=== PATIENT | male | born 1970 | race African-American/Black ===

== ENCOUNTER 2018-01-19 19:31 | Inpatient (IN) | payer BC ==
[2018-01-19] MEDS ORDERED: oxyCODONE (CR) 10 MG TAB [oxyCONTIN] PO (20:30)
[2018-01-19] MEDS: DEXTROSE 5%-0.45% NACL 1,000 ML IV (22:07)
[2018-01-19] MEDS: oxyCODONE 5 MG TAB PO (22:11)
[2018-01-19 23:24] LABS: CREATINE KINASE 67 IU/L (23-200)
[2018-01-19] MEDS ORDERED: NITROGLYCERIN (SL) 0.4 MG TAB SL (23:30)
[2018-01-19] MEDS ORDERED: ALBUTEROL/IPRATROPIUM (NEB) 3 ML AMP HHN (23:30)
[2018-01-19] MEDS ORDERED: NACL 0.9% 3 ML SYG IV (23:30)
[2018-01-19] MEDS ORDERED: ONDANSETRON 4 MG INJ IV (23:30)
[2018-01-19] MEDS ORDERED: ACETAMINOPHEN 325 MG TAB PO (23:30)
[2018-01-19 23:38] LABS: CK INDEX 1.5; CK-MB 1.01 ng/ml (0.0-2.4); TROPONIN-I < 0.012 ng/ml (0.000-0.120)
[2018-01-19] MEDS: ASPIRIN (EC) 81 MG TAB PO (23:47)
[2018-01-20] MEDS: DEXTROSE 5%-0.45% NACL 1,000 ML IV ×2 (05:48→15:53)
[2018-01-20 06:59] LABS: ADD MAN DIFF? NO
[2018-01-20 07:03] LABS: BASOPHILS % 0.1 % (0.0-2.0); EOSINOPHILS % 0.1 % (0.0-7.0); HEMOGLOBIN 13.5 g/dl (14.0-18.0); LYMPHOCYTES # 0.6 10^3/ul (0.8-2.9); LYMPHOCYTES % 7.4 % (15.0-51.0); MEAN CORPUSCULAR HGB CONC 33.8 g/dl (32.0-37.0); MEAN CORPUSCULAR VOLUME 91.7 fl (82.0-101.0); MONOCYTE # 0.8 10^3/ul (0.3-0.9); MONOCYTES % 9.6 % (0.0-11.0); NEUTROPHIL # 6.8 10^3/ul (1.6-7.5); NEUTROPHILS % 82.1 % (39.0-77.0); PLATELET COUNT 195 10^3/UL (140-415); RED BLOOD COUNT 4.36 10^6/ul (4.70-6.10); RED CELL DISTRIBUTION WIDTH 12.6 % (11.5-14.5)
[2018-01-20 07:03] LABS: WHITE BLOOD COUNT 8.3 10^3/ul (4.8-10.8)
[2018-01-20 07:18] LABS: HEMOGLOBIN A1C 5.8 % (0-5.9)
[2018-01-20 07:20] LABS: CREATINE KINASE 55 IU/L (23-200)
[2018-01-20 07:23] LABS: ALANINE AMINOTRANSFERASE 35 IU/L (13-69); ALBUMIN 2.8 g/dl (3.3-4.9); ALBUMIN/GLOBULIN RATIO 1.16; ALKALINE PHOSPHATASE 52 IU/L (42-121); ANION GAP 4 (5-13); ASPARTATE AMINO TRANSFERASE 36 IU/L (15-46); BILIRUBIN,INDIRECT 0.4 mg/dl (0-1.1); BILIRUBIN,TOTAL 0.4 mg/dl (0.2-1.3); BLOOD UREA NITROGEN 12 mg/dl (7-20); CALCIUM 8.1 mg/dl (8.4-10.2); CARBON DIOXIDE 30 mmol/L (21-31); CHLORIDE 101 mmol/L (97-110); CHOL/HDL RATIO 3.1 RATIO; CHOLESTEROL 149 mg/dl (100-200); CREATININE 0.76 mg/dl (0.61-1.24); Estimated GFR > 60 mL/min (>60); GLUCOSE 129 mg/dl (70-220); HDL CHOLESTEROL 47 mg/dl (28-71); LDL CHOLESTEROL,CALCULATED 82 mg/dl; POTASSIUM 3.8 mmol/L (3.5-5.1); SODIUM 135 mmol/L (135-144); TOTAL PROTEIN 5.2 g/dl (6.1-8.1); TRIGLYCERIDES 98 mg/dl (0-149)
[2018-01-20 07:31] LABS: CK INDEX 1.6; CK-MB 0.89 ng/ml (0.0-2.4); TROPONIN-I < 0.012 ng/ml (0.000-0.120)
[2018-01-20] MEDS: ASPIRIN 81 MG TAB PO (08:19)
[2018-01-20] MEDS: ENOXAPARIN 40 MG/0.4 ML SYG SC (08:31)
[2018-01-20] MEDS: oxyCODONE 5 MG TAB PO ×2 (10:51→15:19)
[2018-01-20 11:06] LABS: AADO2 Arterial 30.7 mmHg (7.0-24.0); Allen Test ACCEPTAB; Arterial Base Excess 3.6 mmol/L (-3.0-3); Arterial Blood Gas Oxygen Sat 93.8 mmHG (95.0-98.0); Arterial COHb 0.7 % (0.0-3.0); Arterial Fraction of Oxyhgb 92.8 % (93.0-99.0); Arterial HCO3 28.5 mmol/L (22.0-26.0); Arterial MetHb 0.4 % (0.0-1.5); Arterial Total Hemglobin 14.2 g/dl (12.0-18.0); Arterial pCO2 43.8 mmhg (35-45); MODE ROOM AIR; Site Right Radial
[2018-01-20 11:59] LABS: LIPASE 1438 U/L (23-300)
[2018-01-20] MEDS: FAMOTIDINE 20 MG INJ IV (16:43)
[2018-01-20] MEDS: morphine 4 MG/ML VIAL IV (19:36)
[2018-01-20] MEDS: MAGNESIUM HYDROXIDE 30ML CUP PO (23:50)
[2018-01-21] MEDS: DEXTROSE 5%-0.45% NACL 1,000 ML IV (01:51)
[2018-01-21] MEDS: morphine 4 MG/ML VIAL IV ×4 (02:26→19:30)
[2018-01-21] MEDS: BARIUM SULF 2% 450 ML BTL (BERRY SMOOTHIE) PO (05:27)
[2018-01-21 06:08] LABS: ADD MAN DIFF? NO; HAAIG REFLEX REFLEX FILED
[2018-01-21 06:14] LABS: BASOPHILS % 0.2 % (0.0-2.0); EOSINOPHILS # 0.1 10^3/ul (0.0-0.5); HEMATOCRIT 44.9 % (42.0-52.0); HEMOGLOBIN 14.9 g/dl (14.0-18.0); LYMPHOCYTES # 0.7 10^3/ul (0.8-2.9); LYMPHOCYTES % 6.8 % (15.0-51.0); MEAN CORPUSCULAR HEMOGLOBIN 30.6 pg (29.0-33.0); MEAN CORPUSCULAR HGB CONC 33.2 g/dl (32.0-37.0); MEAN CORPUSCULAR VOLUME 92.2 fl (82.0-101.0); MONOCYTE # 0.9 10^3/ul (0.3-0.9); MONOCYTES % 8.5 % (0.0-11.0); NEUTROPHILS % 82.8 % (39.0-77.0); PLATELET COUNT 222 10^3/UL (140-415); RED BLOOD COUNT 4.87 10^6/ul (4.70-6.10); RED CELL DISTRIBUTION WIDTH 12.7 % (11.5-14.5)
[2018-01-21 06:14] LABS: WHITE BLOOD COUNT 10.9 10^3/ul (4.8-10.8)
[2018-01-21 06:31] LABS: HEMOGLOBIN A1C 5.8 % (0-5.9)
[2018-01-21 06:37] LABS: CHOL/HDL RATIO 3.3 RATIO; HDL CHOLESTEROL 46 mg/dl (28-71); LDL CHOLESTEROL,CALCULATED 88 mg/dl; TRIGLYCERIDES 105 mg/dl (0-149)
[2018-01-21 06:37] LABS: CHOLESTEROL 155 mg/dl (100-200)
[2018-01-21 06:38] LABS: INR 0.86; PROTIME 11.8 Sec (11.9-14.9); PT RATIO 0.9
[2018-01-21 07:53] LABS: ALANINE AMINOTRANSFERASE 43 IU/L (13-69); ALBUMIN 3.2 g/dl (3.3-4.9); ALBUMIN/GLOBULIN RATIO 1.33; ALKALINE PHOSPHATASE 65 IU/L (42-121); ANION GAP 9 (5-13); ASPARTATE AMINO TRANSFERASE 51 IU/L (15-46); BILIRUBIN,INDIRECT 0.4 mg/dl (0-1.1); BILIRUBIN,TOTAL 0.4 mg/dl (0.2-1.3); BLOOD UREA NITROGEN 8 mg/dl (7-20); CALCIUM 8.4 mg/dl (8.4-10.2); CARBON DIOXIDE 29 mmol/L (21-31); CHLORIDE 96 mmol/L (97-110); CREATININE 0.73 mg/dl (0.61-1.24); Estimated GFR > 60 mL/min (>60); GLUCOSE 87 mg/dl (70-220); POTASSIUM 3.6 mmol/L (3.5-5.1); SODIUM 134 mmol/L (135-144); TOTAL PROTEIN 5.6 g/dl (6.1-8.1)
[2018-01-21 08:27] LABS: LIPASE 3944 U/L (23-300)
[2018-01-21] MEDS: ASPIRIN 81 MG TAB PO (08:36)
[2018-01-21] MEDS: FAMOTIDINE 20 MG INJ IV (08:36)
[2018-01-21] MEDS: ENOXAPARIN 40 MG/0.4 ML SYG SC (08:37)
[2018-01-21 08:42] LABS: HEPATITIS B CORE ANTIBODY NEGATIVE (NEGATIVE); HEPATITIS C VIRAL ANTIBODY NEGATIVE (NEGATIVE)
[2018-01-21 09:19] LABS: TROPONIN-I < 0.012 ng/ml (0.000-0.120)
[2018-01-21 09:20] LABS: HEPATITIS B SURFACE ANTIGEN NEGATIVE (NEGATIVE)
[2018-01-21] MEDS: SOD CHLORIDE 0.9% 1,000 ML IV ×3 (10:18→22:54)
[2018-01-22] MEDS: morphine 4 MG/ML VIAL IV ×5 (01:09→20:06)
[2018-01-22] MEDS: SOD CHLORIDE 0.9% 1,000 ML IV ×2 (05:30→11:52)
[2018-01-22 06:30] LABS: ADD MAN DIFF? NO
[2018-01-22 06:40] LABS: BASOPHILS % 0.3 % (0.0-2.0); EOSINOPHILS # 0.2 10^3/ul (0.0-0.5); EOSINOPHILS % 1.9 % (0.0-7.0); HEMATOCRIT 42.9 % (42.0-52.0); HEMOGLOBIN 14.2 g/dl (14.0-18.0); LYMPHOCYTES # 0.8 10^3/ul (0.8-2.9); LYMPHOCYTES % 7.4 % (15.0-51.0); MEAN CORPUSCULAR HGB CONC 33.1 g/dl (32.0-37.0); MEAN CORPUSCULAR VOLUME 93.7 fl (82.0-101.0); MEAN PLATELET VOLUME 8.9 fl (7.4-10.4); MONOCYTE # 0.9 10^3/ul (0.3-0.9); MONOCYTES % 8.9 % (0.0-11.0); NEUTROPHIL # 8.3 10^3/ul (1.6-7.5); NEUTROPHILS % 80.7 % (39.0-77.0); PLATELET COUNT 237 10^3/UL (140-415); RED BLOOD COUNT 4.58 10^6/ul (4.70-6.10); RED CELL DISTRIBUTION WIDTH 12.7 % (11.5-14.5)
[2018-01-22 06:40] LABS: WHITE BLOOD COUNT 10.3 10^3/ul (4.8-10.8)
[2018-01-22 07:02] LABS: PHOSPHORUS 3.3 mg/dl (2.5-4.9)
[2018-01-22 07:13] LABS: ANION GAP 8 (5-13); BLOOD UREA NITROGEN 11 mg/dl (7-20); CALCIUM 8.4 mg/dl (8.4-10.2); CARBON DIOXIDE 29 mmol/L (21-31); CHLORIDE 99 mmol/L (97-110); CREATININE 0.91 mg/dl (0.61-1.24); Estimated GFR > 60 mL/min (>60); GLUCOSE 72 mg/dl (70-220); LIPASE 1926 U/L (23-300); POTASSIUM 4.6 mmol/L (3.5-5.1); SODIUM 136 mmol/L (135-144)
[2018-01-22] MEDS: FAMOTIDINE 20 MG INJ IV (08:23)
[2018-01-22] MEDS: ASPIRIN 81 MG TAB PO (08:23)
[2018-01-22] MEDS: ENOXAPARIN 40 MG/0.4 ML SYG SC (08:29)
[2018-01-22] MEDS: DEXTROSE 5%-0.9% NACL 1,000 ML IV ×2 (13:50→23:30)
[2018-01-23] MEDS: morphine 4 MG/ML VIAL IV ×3 (03:42→12:36)
[2018-01-23 06:15] LABS: ADD MAN DIFF? NO
[2018-01-23 06:31] LABS: BASOPHILS % 0.3 % (0.0-2.0); EOSINOPHILS # 0.2 10^3/ul (0.0-0.5); EOSINOPHILS % 3.2 % (0.0-7.0); HEMATOCRIT 40.7 % (42.0-52.0); HEMOGLOBIN 13.7 g/dl (14.0-18.0); LYMPHOCYTES # 0.6 10^3/ul (0.8-2.9); LYMPHOCYTES % 8.1 % (15.0-51.0); MEAN CORPUSCULAR HEMOGLOBIN 30.6 pg (29.0-33.0); MEAN CORPUSCULAR HGB CONC 33.7 g/dl (32.0-37.0); MEAN CORPUSCULAR VOLUME 91.1 fl (82.0-101.0); MEAN PLATELET VOLUME 8.9 fl (7.4-10.4); MONOCYTE # 0.7 10^3/ul (0.3-0.9); MONOCYTES % 8.7 % (0.0-11.0); NEUTROPHILS % 78.8 % (39.0-77.0); PLATELET COUNT 264 10^3/UL (140-415); RED BLOOD COUNT 4.47 10^6/ul (4.70-6.10); RED CELL DISTRIBUTION WIDTH 12.4 % (11.5-14.5)
[2018-01-23 06:31] LABS: WHITE BLOOD COUNT 7.6 10^3/ul (4.8-10.8)
[2018-01-23 06:57] LABS: ANION GAP 8 (5-13); BLOOD UREA NITROGEN 12 mg/dl (7-20); CALCIUM 8.8 mg/dl (8.4-10.2); CARBON DIOXIDE 27 mmol/L (21-31); CHLORIDE 98 mmol/L (97-110); CREATININE 0.76 mg/dl (0.61-1.24); Estimated GFR > 60 mL/min (>60); GLUCOSE 100 mg/dl (70-220); LIPASE 1578 U/L (23-300); POTASSIUM 4.1 mmol/L (3.5-5.1); SODIUM 133 mmol/L (135-144)
[2018-01-23 07:08] LABS: MAGNESIUM 1.9 mg/dl (1.7-2.5)
[2018-01-23 07:08] LABS: PHOSPHORUS 3.5 mg/dl (2.5-4.9)
[2018-01-23] MEDS: ASPIRIN 81 MG TAB PO (08:33)
[2018-01-23] MEDS: FAMOTIDINE 20 MG INJ IV (08:33)
[2018-01-23] MEDS: ENOXAPARIN 40 MG/0.4 ML SYG SC (08:47)
[2018-01-23] MEDS: DEXTROSE 5%-0.9% NACL 1,000 ML IV ×2 (09:30→17:55)
[2018-01-23] MEDS: morphine 2 MG INJ IV ×2 (17:53→22:10)
[2018-01-24] MEDS: morphine 2 MG INJ IV ×5 (03:14→21:59)
[2018-01-24] MEDS: DEXTROSE 5%-0.9% NACL 1,000 ML IV ×3 (05:30→21:02)
[2018-01-24 05:31] LABS: ADD MAN DIFF? NO
[2018-01-24 05:55] LABS: BASOPHILS % 0.7 % (0.0-2.0); EOSINOPHILS # 0.3 10^3/ul (0.0-0.5); EOSINOPHILS % 4.2 % (0.0-7.0); HEMATOCRIT 43.6 % (42.0-52.0); HEMOGLOBIN 14.6 g/dl (14.0-18.0); LYMPHOCYTES # 0.7 10^3/ul (0.8-2.9); LYMPHOCYTES % 10.9 % (15.0-51.0); MEAN CORPUSCULAR HEMOGLOBIN 31.1 pg (29.0-33.0); MEAN CORPUSCULAR HGB CONC 33.5 g/dl (32.0-37.0); MEAN CORPUSCULAR VOLUME 92.8 fl (82.0-101.0); MEAN PLATELET VOLUME 9.1 fl (7.4-10.4); MONOCYTE # 0.7 10^3/ul (0.3-0.9); NEUTROPHIL # 4.2 10^3/ul (1.6-7.5); NEUTROPHILS % 70.9 % (39.0-77.0); POSITIVE DIFF @See below; RED CELL DISTRIBUTION WIDTH 12.2 % (11.5-14.5)
[2018-01-24 05:55] LABS: WHITE BLOOD COUNT 5.9 10^3/ul (4.8-10.8)
[2018-01-24 06:01] LABS: ANION GAP 10 (5-13); BLOOD UREA NITROGEN 13 mg/dl (7-20); CALCIUM 8.9 mg/dl (8.4-10.2); CARBON DIOXIDE 26 mmol/L (21-31); CHLORIDE 98 mmol/L (97-110); CREATININE 0.83 mg/dl (0.61-1.24); Estimated GFR > 60 mL/min (>60); GLUCOSE 91 mg/dl (70-220); LIPASE 1278 U/L (23-300); POTASSIUM 4.3 mmol/L (3.5-5.1); SODIUM 134 mmol/L (135-144)
[2018-01-24 06:21] LABS: PLATELET COUNT 318 10^3/UL (140-415)
[2018-01-24] MEDS: ASPIRIN 81 MG TAB PO (08:08)
[2018-01-24] MEDS: ENOXAPARIN 40 MG/0.4 ML SYG SC (08:09)
[2018-01-24] MEDS: FAMOTIDINE 20 MG INJ IV (08:09)
[2018-01-24] MEDS: METHYLPREDNISOLONE 40 MG INJ IV (12:59)
[2018-01-24] MEDS: MAGNESIUM HYDROXIDE 30ML CUP PO (23:28)
[2018-01-25] MEDS: DEXTROSE 5%-0.9% NACL 1,000 ML IV ×3 (03:42→16:57)
[2018-01-25] MEDS: morphine 2 MG INJ IV ×5 (05:03→22:08)
[2018-01-25] MEDS: ASPIRIN 81 MG TAB PO (08:54)
[2018-01-25] MEDS: FAMOTIDINE 20 MG INJ IV (08:54)
[2018-01-25] MEDS: ENOXAPARIN 40 MG/0.4 ML SYG SC (08:55)
[2018-01-25 12:42] LABS: ADD MAN DIFF? NO
[2018-01-25 12:45] LABS: WHITE BLOOD COUNT 6.4 10^3/ul (4.8-10.8)
[2018-01-25 12:45] LABS: BASOPHILS % 0.6 % (0.0-2.0); EOSINOPHILS # 0.2 10^3/ul (0.0-0.5); HEMOGLOBIN 14.4 g/dl (14.0-18.0); LYMPHOCYTES % 14.9 % (15.0-51.0); MEAN CORPUSCULAR HEMOGLOBIN 30.6 pg (29.0-33.0); MEAN CORPUSCULAR HGB CONC 32.7 g/dl (32.0-37.0); MEAN CORPUSCULAR VOLUME 93.4 fl (82.0-101.0); MEAN PLATELET VOLUME 8.5 fl (7.4-10.4); MONOCYTE # 0.8 10^3/ul (0.3-0.9); MONOCYTES % 11.9 % (0.0-11.0); NEUTROPHIL # 4.3 10^3/ul (1.6-7.5); NEUTROPHILS % 67.9 % (39.0-77.0); PLATELET COUNT 360 10^3/UL (140-415); RED BLOOD COUNT 4.71 10^6/ul (4.70-6.10); RED CELL DISTRIBUTION WIDTH 12.2 % (11.5-14.5)
[2018-01-25 13:03] LABS: ALANINE AMINOTRANSFERASE 29 IU/L (13-69); ALBUMIN 3.8 g/dl (3.3-4.9); ALBUMIN/GLOBULIN RATIO 1.31; ALKALINE PHOSPHATASE 80 IU/L (42-121); ANION GAP 9 (5-13); ASPARTATE AMINO TRANSFERASE 35 IU/L (15-46); BILIRUBIN,INDIRECT 0.1 mg/dl (0-1.1); BILIRUBIN,TOTAL 0.1 mg/dl (0.2-1.3); BLOOD UREA NITROGEN 14 mg/dl (7-20); CALCIUM 9.3 mg/dl (8.4-10.2); CARBON DIOXIDE 29 mmol/L (21-31); CHLORIDE 103 mmol/L (97-110); CREATININE 0.85 mg/dl (0.61-1.24); Estimated GFR > 60 mL/min (>60); GLUCOSE 105 mg/dl (70-220); MAGNESIUM 2.4 mg/dl (1.7-2.5); PHOSPHORUS 3.5 mg/dl (2.5-4.9); POTASSIUM 3.8 mmol/L (3.5-5.1); SODIUM 141 mmol/L (135-144); TOTAL PROTEIN 6.7 g/dl (6.1-8.1)
[2018-01-25] MEDS: METHYLPREDNISOLONE 40 MG INJ IV (13:20)
[2018-01-26] MEDS: DEXTROSE 5%-0.9% NACL 1,000 ML IV ×2 (00:57→06:22)
[2018-01-26 05:56] LABS: ADD MAN DIFF? NO
[2018-01-26 06:01] LABS: WHITE BLOOD COUNT 5.2 10^3/ul (4.8-10.8)
[2018-01-26 06:01] LABS: BASOPHILS % 0.6 % (0.0-2.0); EOSINOPHILS # 0.1 10^3/ul (0.0-0.5); EOSINOPHILS % 1.7 % (0.0-7.0); HEMOGLOBIN 12.2 g/dl (14.0-18.0); LYMPHOCYTES # 0.8 10^3/ul (0.8-2.9); LYMPHOCYTES % 15.1 % (15.0-51.0); MEAN CORPUSCULAR HEMOGLOBIN 30.5 pg (29.0-33.0); MEAN CORPUSCULAR HGB CONC 32.1 g/dl (32.0-37.0); MEAN PLATELET VOLUME 8.7 fl (7.4-10.4); MONOCYTE # 0.6 10^3/ul (0.3-0.9); MONOCYTES % 11.3 % (0.0-11.0); NEUTROPHIL # 3.6 10^3/ul (1.6-7.5); NEUTROPHILS % 69.9 % (39.0-77.0); PLATELET COUNT 344 10^3/UL (140-415); RED CELL DISTRIBUTION WIDTH 12.1 % (11.5-14.5)
[2018-01-26 06:26] LABS: ANION GAP 9 (5-13); BLOOD UREA NITROGEN 11 mg/dl (7-20); CARBON DIOXIDE 26 mmol/L (21-31); CHLORIDE 106 mmol/L (97-110); CREATININE 0.73 mg/dl (0.61-1.24); Estimated GFR > 60 mL/min (>60); GLUCOSE 111 mg/dl (70-220); MAGNESIUM 1.9 mg/dl (1.7-2.5); PHOSPHORUS 3.4 mg/dl (2.5-4.9); POTASSIUM 3.8 mmol/L (3.5-5.1); SODIUM 141 mmol/L (135-144)
[2018-01-26] MEDS: morphine 2 MG INJ IV (06:48)
[2018-01-26] MEDS: predniSONE 20 MG TAB PO (08:48)
[2018-01-26] MEDS: ASPIRIN 81 MG TAB PO (08:48)
[2018-01-26] MEDS: FAMOTIDINE 20 MG INJ IV (08:48)
[2018-01-26] MEDS: ENOXAPARIN 40 MG/0.4 ML SYG SC (08:49)
[2018-01-26] MEDS: PANTOPRAZOLE (EC) 40 MG TAB PO (13:50)
[2018-01-26] MEDS: OXYCODONE/ACETAMINOPHEN (10/325) TAB PO ×2 (13:54→20:06)
[2018-01-27] MEDS: OXYCODONE/ACETAMINOPHEN (10/325) TAB PO ×2 (02:38→08:42)
[2018-01-27] MEDS: PANTOPRAZOLE (EC) 40 MG TAB PO (05:57)
[2018-01-27 06:03] LABS: ADD MAN DIFF? NO
[2018-01-27 06:21] LABS: BASOPHILS % 0.4 % (0.0-2.0); EOSINOPHILS # 0.1 10^3/ul (0.0-0.5); EOSINOPHILS % 2.8 % (0.0-7.0); HEMATOCRIT 36.3 % (42.0-52.0); HEMOGLOBIN 11.8 g/dl (14.0-18.0); LYMPHOCYTES # 0.9 10^3/ul (0.8-2.9); LYMPHOCYTES % 18.1 % (15.0-51.0); MEAN CORPUSCULAR HEMOGLOBIN 30.2 pg (29.0-33.0); MEAN CORPUSCULAR HGB CONC 32.5 g/dl (32.0-37.0); MEAN CORPUSCULAR VOLUME 92.8 fl (82.0-101.0); MEAN PLATELET VOLUME 8.7 fl (7.4-10.4); MONOCYTE # 0.6 10^3/ul (0.3-0.9); MONOCYTES % 12.5 % (0.0-11.0); NEUTROPHIL # 3.3 10^3/ul (1.6-7.5); PLATELET COUNT 384 10^3/UL (140-415); RED BLOOD COUNT 3.91 10^6/ul (4.70-6.10); RED CELL DISTRIBUTION WIDTH 12.4 % (11.5-14.5)
[2018-01-27 06:55] LABS: ANION GAP 9 (5-13); BLOOD UREA NITROGEN 12 mg/dl (7-20); CALCIUM 8.5 mg/dl (8.4-10.2); CARBON DIOXIDE 26 mmol/L (21-31); CHLORIDE 104 mmol/L (97-110); CREATININE 0.79 mg/dl (0.61-1.24); Estimated GFR > 60 mL/min (>60); GLUCOSE 100 mg/dl (70-220); MAGNESIUM 1.8 mg/dl (1.7-2.5); PHOSPHORUS 3.2 mg/dl (2.5-4.9); POTASSIUM 3.8 mmol/L (3.5-5.1); SODIUM 139 mmol/L (135-144)
[2018-01-27] MEDS: ASPIRIN 81 MG TAB PO (09:33)
[2018-01-27] MEDS: predniSONE 20 MG TAB PO (09:33)
[2018-01-27] MEDS: ENOXAPARIN 40 MG/0.4 ML SYG SC (09:35)
== END 2018-01-27 15:10 | disposition home or self-care (01) | DRG 439 ==
LOC: PP2 01-23 13:05 → TEL 19:31
DX: K85.20 Alcohol induced acute pancreatitis without necrosis or infection (principal); J44.1 Chronic obstructive pulmonary disease with (acute) exacerbation; D86.0 Sarcoidosis of lung; J98.4 Other disorders of lung; Z87.891 Personal history of nicotine dependence
CPT/HCPCS: 36600; 71045; 74176; 80048; 80053; 80061; 82550; 82553; 82803; 83036; 83690; 83735; 84100; 84443; 84484; 85025; 85610; 86704; 86709; 86803; 87081; 87340; 93005

== ENCOUNTER 2018-02-14 09:53 | Inpatient (IN) | payer BC ==
[2018-02-14] MEDS: ALBUTEROL 0.5% (NEB) 2.5 MG/0.5 ML AMP INH (10:50)
[2018-02-14] MEDS: IPRATROPIUM (NEB) 0.5 MG/2.5 ML AMP INH (10:50)
[2018-02-14 11:02] LABS: ADD MAN DIFF? NO
[2018-02-14 11:08] LABS: BASOPHILS % 0.4 % (0.0-2.0); EOSINOPHILS # 0.4 10^3/ul (0.0-0.5); HEMOGLOBIN 12.8 g/dl (14.0-18.0); LYMPHOCYTES % 11.5 % (15.0-51.0); MEAN CORPUSCULAR HEMOGLOBIN 30.6 pg (29.0-33.0); MEAN CORPUSCULAR HGB CONC 32.8 g/dl (32.0-37.0); MEAN CORPUSCULAR VOLUME 93.3 fl (82.0-101.0); MEAN PLATELET VOLUME 8.7 fl (7.4-10.4); MONOCYTE # 0.8 10^3/ul (0.3-0.9); NEUTROPHIL # 6.2 10^3/ul (1.6-7.5); NEUTROPHILS % 73.3 % (39.0-77.0); PLATELET COUNT 310 10^3/UL (140-415); RED BLOOD COUNT 4.18 10^6/ul (4.70-6.10); RED CELL DISTRIBUTION WIDTH 13.2 % (11.5-14.5)
[2018-02-14 11:08] LABS: WHITE BLOOD COUNT 8.5 10^3/ul (4.8-10.8)
[2018-02-14 11:17] LABS: AADO2 Arterial 85.3 mmHg (7.0-24.0); Allen Test ACCEPTAB; Arterial Base Excess -0.7 mmol/L (-3.0-3); Arterial Blood Gas Oxygen Sat 99.3 mmHG (95.0-98.0); Arterial COHb 0.6 % (0.0-3.0); Arterial Fraction of Oxyhgb 98.6 % (93.0-99.0); Arterial HCO3 22.9 mmol/L (22.0-26.0); Arterial MetHb 0.1 % (0.0-1.5); Arterial pCO2 34.5 mmhg (35-45); MODE MASK - SIMPLE; Site Right Radial
[2018-02-14] MEDS: SOD CHLORIDE 0.9% 500 ML IV (11:20)
[2018-02-14] MEDS: METHYLPREDNISOLONE 125 MG INJ IV (11:21)
[2018-02-14 11:28] LABS: ANION GAP 10 (5-13); BLOOD UREA NITROGEN 13 mg/dl (7-20); CALCIUM 9.2 mg/dl (8.4-10.2); CARBON DIOXIDE 29 mmol/L (21-31); CHLORIDE 102 mmol/L (97-110); CREATININE 0.78 mg/dl (0.61-1.24); Estimated GFR > 60 mL/min (>60); GLUCOSE 73 mg/dl (70-220); POTASSIUM 3.7 mmol/L (3.5-5.1); SODIUM 141 mmol/L (135-144)
[2018-02-14] MEDS: CEFAZOLIN 1 GM/50 ML (PMX) 50 ML IVPB (11:30)
[2018-02-14 11:39] LABS: TROPONIN-I < 0.012 ng/ml (0.000-0.120)
[2018-02-14] MEDS: KETOROLAC 15 MG INJ IV (12:12)
[2018-02-14] MEDS: LORAZEPAM 2 MG INJ IV (12:14)
[2018-02-14] MEDS ORDERED: ACETAMINOPHEN 325 MG TAB PO (12:30)
[2018-02-14] MEDS ORDERED: NACL 0.9% 3 ML SYG IV (12:30)
[2018-02-14] MEDS ORDERED: ONDANSETRON 4 MG INJ IV (12:30)
[2018-02-14] MEDS: ALBUTEROL/IPRATROPIUM (NEB) 3 ML AMP HHN ×4 (12:38→22:05)
[2018-02-14] MEDS ORDERED: ALBUTEROL/IPRATROPIUM (NEB) 3 ML AMP HHN (13:00)
[2018-02-14 13:22] LABS: CREATINE KINASE 99 IU/L (23-200)
[2018-02-14] MEDS: DOCUSATE SODIUM 100 MG CAP PO ×2 (13:30→21:01)
[2018-02-14 13:32] LABS: CK-MB 0.48 ng/ml (0.0-2.4)
[2018-02-14] MEDS ORDERED: METHYLPREDNISOLONE 40 MG INJ IV (14:00)
[2018-02-14 19:24] LABS: CREATINE KINASE 73 IU/L (23-200)
[2018-02-14 19:38] LABS: CK INDEX 0.6; CK-MB 0.45 ng/ml (0.0-2.4); TROPONIN-I < 0.012 ng/ml (0.000-0.120)
[2018-02-14] MEDS ORDERED: METHYLPREDNISOLONE 40 MG INJ (20:43)
[2018-02-14] MEDS: CEFEPIME 1GM/50 ML (PMX) 50 ML IVPB (20:59)
[2018-02-14] MEDS: FAMOTIDINE 20 MG TAB PO (21:01)
[2018-02-14] MEDS: METHYLPREDNISOLONE 40 MG INJ IV (21:01)
[2018-02-14] MEDS: HYDROCODONE/APAP (5/325) TAB PO (21:02)
[2018-02-15] MEDS: ZOLPIDEM 5 MG TAB PO ×2 (01:04→20:32)
[2018-02-15] MEDS: ALBUTEROL/IPRATROPIUM (NEB) 3 ML AMP HHN ×6 (01:29→20:42)
[2018-02-15] MEDS: METHYLPREDNISOLONE 40 MG INJ IV ×3 (05:17→21:21)
[2018-02-15 06:28] LABS: ADD MAN DIFF? NO
[2018-02-15 06:39] LABS: BASOPHILS % 0.1 % (0.0-2.0); HEMATOCRIT 33.8 % (42.0-52.0); HEMOGLOBIN 11.2 g/dl (14.0-18.0); LYMPHOCYTES # 0.7 10^3/ul (0.8-2.9); LYMPHOCYTES % 9.3 % (15.0-51.0); MEAN CORPUSCULAR HEMOGLOBIN 30.4 pg (29.0-33.0); MEAN CORPUSCULAR HGB CONC 33.1 g/dl (32.0-37.0); MEAN CORPUSCULAR VOLUME 91.8 fl (82.0-101.0); MEAN PLATELET VOLUME 8.8 fl (7.4-10.4); MONOCYTE # 0.5 10^3/ul (0.3-0.9); MONOCYTES % 6.5 % (0.0-11.0); NEUTROPHIL # 6.5 10^3/ul (1.6-7.5); NEUTROPHILS % 83.2 % (39.0-77.0); PLATELET COUNT 267 10^3/UL (140-415); RED BLOOD COUNT 3.68 10^6/ul (4.70-6.10); RED CELL DISTRIBUTION WIDTH 12.6 % (11.5-14.5)
[2018-02-15 06:39] LABS: WHITE BLOOD COUNT 7.8 10^3/ul (4.8-10.8)
[2018-02-15 07:42] LABS: ALANINE AMINOTRANSFERASE 22 IU/L (13-69); ALBUMIN 3.1 g/dl (3.3-4.9); ALBUMIN/GLOBULIN RATIO 1.24; ALKALINE PHOSPHATASE 75 IU/L (42-121); ANION GAP 7 (5-13); ASPARTATE AMINO TRANSFERASE 26 IU/L (15-46); BILIRUBIN,INDIRECT 0.2 mg/dl (0-1.1); BILIRUBIN,TOTAL 0.2 mg/dl (0.2-1.3); BLOOD UREA NITROGEN 22 mg/dl (7-20); CALCIUM 8.8 mg/dl (8.4-10.2); CARBON DIOXIDE 27 mmol/L (21-31); CHLORIDE 102 mmol/L (97-110); Estimated GFR > 60 mL/min (>60); GLUCOSE 217 mg/dl (70-220); POTASSIUM 4.1 mmol/L (3.5-5.1); SODIUM 136 mmol/L (135-144); TOTAL PROTEIN 5.6 g/dl (6.1-8.1)
[2018-02-15] MEDS: ASPIRIN 81 MG TAB PO (08:29)
[2018-02-15] MEDS: CEFEPIME 1GM/50 ML (PMX) 50 ML IVPB ×2 (08:29→20:27)
[2018-02-15] MEDS: FAMOTIDINE 20 MG TAB PO ×2 (08:29→20:29)
[2018-02-15] MEDS: DOCUSATE SODIUM 100 MG CAP PO ×2 (08:29→20:29)
[2018-02-15 09:11] LABS: HEMOGLOBIN A1C 5.9 % (0-5.9)
[2018-02-15] MEDS: HYDROCODONE/APAP (5/325) TAB PO (21:17)
[2018-02-16] MEDS: ALBUTEROL/IPRATROPIUM (NEB) 3 ML AMP HHN ×6 (01:22→20:39)
[2018-02-16] MEDS: METHYLPREDNISOLONE 40 MG INJ IV ×3 (06:05→20:17)
[2018-02-16 06:26] LABS: ADD MAN DIFF? NO
[2018-02-16 06:39] LABS: WHITE BLOOD COUNT 12.1 10^3/ul (4.8-10.8)
[2018-02-16 06:39] LABS: BASOPHILS % 0.2 % (0.0-2.0); HEMATOCRIT 32.6 % (42.0-52.0); HEMOGLOBIN 10.8 g/dl (14.0-18.0); LYMPHOCYTES # 0.7 10^3/ul (0.8-2.9); LYMPHOCYTES % 5.4 % (15.0-51.0); MEAN CORPUSCULAR HEMOGLOBIN 30.7 pg (29.0-33.0); MEAN CORPUSCULAR HGB CONC 33.1 g/dl (32.0-37.0); MEAN CORPUSCULAR VOLUME 92.6 fl (82.0-101.0); MEAN PLATELET VOLUME 8.7 fl (7.4-10.4); MONOCYTE # 0.6 10^3/ul (0.3-0.9); MONOCYTES % 5.2 % (0.0-11.0); NEUTROPHIL # 10.7 10^3/ul (1.6-7.5); NEUTROPHILS % 88.4 % (39.0-77.0); PLATELET COUNT 315 10^3/UL (140-415); RED BLOOD COUNT 3.52 10^6/ul (4.70-6.10); RED CELL DISTRIBUTION WIDTH 13.1 % (11.5-14.5)
[2018-02-16 07:28] LABS: ANION GAP 8 (5-13); BLOOD UREA NITROGEN 15 mg/dl (7-20); CALCIUM 9.2 mg/dl (8.4-10.2); CARBON DIOXIDE 28 mmol/L (21-31); CHLORIDE 103 mmol/L (97-110); CREATININE 0.76 mg/dl (0.61-1.24); Estimated GFR > 60 mL/min (>60); GLUCOSE 235 mg/dl (70-220); MAGNESIUM 1.7 mg/dl (1.7-2.5); PHOSPHORUS 2.8 mg/dl (2.5-4.9); SODIUM 139 mmol/L (135-144)
[2018-02-16] MEDS: CEFEPIME 1GM/50 ML (PMX) 50 ML IVPB ×2 (08:11→20:18)
[2018-02-16] MEDS: FAMOTIDINE 20 MG TAB PO ×2 (08:11→20:17)
[2018-02-16] MEDS: ASPIRIN 81 MG TAB PO (08:11)
[2018-02-16] MEDS: DOCUSATE SODIUM 100 MG CAP PO ×2 (08:15→20:18)
[2018-02-16 13:31] LABS: AADO2 Arterial 15.5 mmHg (7.0-24.0); Allen Test ACCEPTAB; Arterial Base Excess 0.5 mmol/L (-3.0-3); Arterial Blood Gas Oxygen Sat 96.4 mmHG (95.0-98.0); Arterial COHb 0.1 % (0.0-3.0); Arterial Fraction of Oxyhgb 95.8 % (93.0-99.0); Arterial HCO3 25.5 mmol/L (22.0-26.0); Arterial MetHb 0.5 % (0.0-1.5); Arterial pCO2 42.7 mmhg (35-45); MODE ROOM AIR; Site Right Radial
[2018-02-16] MEDS: ZOLPIDEM 5 MG TAB PO (20:22)
[2018-02-16] MEDS: HYDROCODONE/APAP (5/325) TAB PO (20:23)
[2018-02-17] MEDS: ALBUTEROL/IPRATROPIUM (NEB) 3 ML AMP HHN ×3 (01:01→09:31)
[2018-02-17] MEDS: LORAZEPAM 0.5 MG TAB PO (04:46)
[2018-02-17] MEDS: METHYLPREDNISOLONE 40 MG INJ IV ×2 (06:15→15:08)
[2018-02-17 08:04] LABS: ADD MAN DIFF? NO
[2018-02-17 08:12] LABS: BASOPHILS % 0.1 % (0.0-2.0); HEMATOCRIT 33.8 % (42.0-52.0); LYMPHOCYTES # 0.8 10^3/ul (0.8-2.9); LYMPHOCYTES % 6.4 % (15.0-51.0); MEAN CORPUSCULAR HEMOGLOBIN 30.6 pg (29.0-33.0); MEAN CORPUSCULAR HGB CONC 32.5 g/dl (32.0-37.0); MEAN CORPUSCULAR VOLUME 93.9 fl (82.0-101.0); MEAN PLATELET VOLUME 8.6 fl (7.4-10.4); MONOCYTES % 8.1 % (0.0-11.0); NEUTROPHIL # 9.8 10^3/ul (1.6-7.5); NEUTROPHILS % 84.1 % (39.0-77.0); PLATELET COUNT 342 10^3/UL (140-415); RED CELL DISTRIBUTION WIDTH 13.5 % (11.5-14.5)
[2018-02-17 08:12] LABS: WHITE BLOOD COUNT 11.7 10^3/ul (4.8-10.8)
[2018-02-17] MEDS: ASPIRIN 81 MG TAB PO (08:22)
[2018-02-17] MEDS: FAMOTIDINE 20 MG TAB PO (08:22)
[2018-02-17] MEDS: CEFEPIME 1GM/50 ML (PMX) 50 ML IVPB (08:23)
[2018-02-17] MEDS: DOCUSATE SODIUM 100 MG CAP PO (08:23)
== END 2018-02-17 15:00 | disposition home or self-care (01) | DRG 196 ==
LOC: TEL 02-15 18:31 → E/R 09:53 → TEL 12:00
DX: D86.0 Sarcoidosis of lung (principal); J96.21 Acute and chronic respiratory failure with hypoxia; K85.90 Acute pancreatitis without necrosis or infection, unspecified; J93.12 Secondary spontaneous pneumothorax; J44.1 Chronic obstructive pulmonary disease with (acute) exacerbation; I27.20 Pulmonary hypertension, unspecified; F10.20 Alcohol dependence, uncomplicated; I10 Essential (primary) hypertension; D64.9 Anemia, unspecified; Z79.82 Long term (current) use of aspirin
CPT/HCPCS: 36415; 36600; 71045; 71046; 71250; 80048; 80053; 82550; 82553; 82803; 83036; 83735; 84100; 84484; 85025; 93306; 94640; 94644; 96374; 99291-25

== ENCOUNTER 2018-05-13 16:48 | Inpatient (IN) | payer BC ==
[2018-05-13 18:04] LABS: ADD MAN DIFF? NO
[2018-05-13] MEDS: CEFTRIAXONE 1 GM/50 ML (PMX) 50 ML IVPB (18:07)
[2018-05-13] MEDS: METHYLPREDNISOLONE 125 MG INJ IV (18:07)
[2018-05-13] MEDS: SODIUM CHLORIDE 0.9% 1L BAG IV* (18:07)
[2018-05-13] MEDS: IBUPROFEN 600 MG TAB PO (18:08)
[2018-05-13] MEDS: LORAZEPAM 0.5 MG TAB PO (18:08)
[2018-05-13] MEDS: ALBUTEROL 0.5% (NEB) 2.5 MG/0.5 ML AMP INH (18:09)
[2018-05-13] MEDS: IPRATROPIUM (NEB) 0.5 MG/2.5 ML AMP INH (18:09)
[2018-05-13 18:14] LABS: BASOPHILS % 0.4 % (0.0-2.0); EOSINOPHILS # 0.3 10^3/ul (0.0-0.5); EOSINOPHILS % 3.6 % (0.0-7.0); HEMATOCRIT 38.5 % (42.0-52.0); HEMOGLOBIN 12.6 g/dl (14.0-18.0); LYMPHOCYTES # 1.1 10^3/ul (0.8-2.9); MEAN CORPUSCULAR HEMOGLOBIN 30.7 pg (29.0-33.0); MEAN CORPUSCULAR HGB CONC 32.7 g/dl (32.0-37.0); MEAN CORPUSCULAR VOLUME 93.9 fl (82.0-101.0); MEAN PLATELET VOLUME 8.3 fl (7.4-10.4); MONOCYTE # 1.1 10^3/ul (0.3-0.9); NEUTROPHIL # 5.6 10^3/ul (1.6-7.5); PLATELET COUNT 457 10^3/UL (140-415); RED CELL DISTRIBUTION WIDTH 13.5 % (11.5-14.5)
[2018-05-13 18:14] LABS: WHITE BLOOD COUNT 8.1 10^3/ul (4.8-10.8)
[2018-05-13 18:31] LABS: INR 0.89; PARTIAL THROMBOPLASTIN TIME 35.3 Sec (23.0-35.0); PROTIME 12.1 Sec (11.9-14.9); PT RATIO 0.9
[2018-05-13 18:36] LABS: ALANINE AMINOTRANSFERASE 15 IU/L (13-69); ALBUMIN 3.2 g/dl (3.3-4.9); ALKALINE PHOSPHATASE 84 IU/L (42-121); ANION GAP 9 (5-13); ASPARTATE AMINO TRANSFERASE 20 IU/L (15-46); BILIRUBIN,INDIRECT 0.2 mg/dl (0-1.1); BILIRUBIN,TOTAL 0.2 mg/dl (0.2-1.3); BLOOD UREA NITROGEN 13 mg/dl (7-20); CALCIUM 8.4 mg/dl (8.4-10.2); CARBON DIOXIDE 23 mmol/L (21-31); CHLORIDE 103 mmol/L (97-110); CREATININE 0.77 mg/dl (0.61-1.24); Estimated GFR > 60 mL/min (>60); GLUCOSE 77 mg/dl (70-220); LIPASE 62 U/L (23-300); SODIUM 135 mmol/L (135-144); TOTAL PROTEIN 6.1 g/dl (6.1-8.1)
[2018-05-13 18:45] LABS: ETHANOL < 10.0 mg/dl (0-0)
[2018-05-13 18:46] LABS: TROPONIN-I < 0.012 ng/ml (0.000-0.120)
[2018-05-13 19:09] LABS: B-TYPE NATRIURETIC PEPTIDE 79 PG/ML (0-125)
[2018-05-13] MEDS: morphine 4 MG/ML VIAL IV (19:24)
[2018-05-13] MEDS ORDERED: ONDANSETRON 4 MG INJ IV (19:30)
[2018-05-13] MEDS ORDERED: NITROGLYCERIN (SL) 0.4 MG TAB SL (19:30)
[2018-05-13] MEDS ORDERED: NACL 0.9% 3 ML SYG IV (19:30)
[2018-05-13] MEDS: ENALAPRILAT 1.25 MG INJ IV (19:31)
[2018-05-13 23:14] LABS: LACTIC ACID 1.6 mmol/L (0.5-2.0)
[2018-05-14] MEDS: ACETAMINOPHEN 325 MG TAB PO (02:31)
[2018-05-14] MEDS: HYDROCODONE/APAP (5/325) TAB PO ×2 (05:30→11:37)
[2018-05-14] MEDS: ALBUTEROL/IPRATROPIUM (NEB) 3 ML AMP HHN ×5 (05:32→19:58)
[2018-05-14 05:55] LABS: ADD MAN DIFF? NO
[2018-05-14 06:04] LABS: WHITE BLOOD COUNT 5.5 10^3/ul (4.8-10.8)
[2018-05-14 06:04] LABS: ABNORMAL IP MESSAGE 1; BASOPHILS % 0.2 % (0.0-2.0); EOSINOPHILS % 0.2 % (0.0-7.0); HEMATOCRIT 36.9 % (42.0-52.0); HEMOGLOBIN 11.9 g/dl (14.0-18.0); LYMPHOCYTES # 0.5 10^3/ul (0.8-2.9); LYMPHOCYTES % 8.6 % (15.0-51.0); MEAN CORPUSCULAR HEMOGLOBIN 30.9 pg (29.0-33.0); MEAN CORPUSCULAR HGB CONC 32.2 g/dl (32.0-37.0); MEAN CORPUSCULAR VOLUME 95.8 fl (82.0-101.0); MEAN PLATELET VOLUME 8.6 fl (7.4-10.4); MONOCYTE # 0.2 10^3/ul (0.3-0.9); MONOCYTES % 3.3 % (0.0-11.0); NEUTROPHIL # 4.8 10^3/ul (1.6-7.5); NEUTROPHILS % 86.8 % (39.0-77.0); PLATELET COUNT 430 10^3/UL (140-415); POSITIVE DIFF @See below; RED BLOOD COUNT 3.85 10^6/ul (4.70-6.10); RED CELL DISTRIBUTION WIDTH 13.2 % (11.5-14.5)
[2018-05-14 06:52] LABS: ALANINE AMINOTRANSFERASE 15 IU/L (13-69); ALBUMIN 2.9 g/dl (3.3-4.9); ALBUMIN/GLOBULIN RATIO 1.03; ALKALINE PHOSPHATASE 82 IU/L (42-121); ANION GAP 5 (5-13); ASPARTATE AMINO TRANSFERASE 17 IU/L (15-46); BLOOD UREA NITROGEN 18 mg/dl (7-20); CALCIUM 8.2 mg/dl (8.4-10.2); CARBON DIOXIDE 25 mmol/L (21-31); CHLORIDE 106 mmol/L (97-110); CREATININE 0.79 mg/dl (0.61-1.24); Estimated GFR > 60 mL/min (>60); GLUCOSE 192 mg/dl (70-220); MAGNESIUM 1.9 mg/dl (1.7-2.5); POTASSIUM 5.2 mmol/L (3.5-5.1); SODIUM 136 mmol/L (135-144); TOTAL PROTEIN 5.7 g/dl (6.1-8.1)
[2018-05-14] MEDS: METHYLPREDNISOLONE 125 MG INJ IV ×3 (08:26→22:51)
[2018-05-14] MEDS: LISINOPRIL 10 MG TAB PO (08:27)
[2018-05-14 09:20] LABS: HEMOGLOBIN A1C 6.1 % (0-5.9)
[2018-05-14] MEDS ORDERED: ALBUTEROL/IPRATROPIUM (NEB) 3 ML AMP HHN ×3 (14:00→17:00)
[2018-05-14] MEDS: CEPASTAT LOZENGE MT (14:40)
[2018-05-14] MEDS: GUAIFENESIN 20 MG/ML 5ML CUP PO (14:40)
[2018-05-14] MEDS: AZITHROMYCIN 250 MG in SOD CHLORIDE 0.9% 250 ML IVPB (17:29)
[2018-05-14] MEDS: HYDROCODONE/APAP (7.5/325) TAB PO ×2 (17:33→21:51)
[2018-05-14] MEDS: DIPHENHYDRAMINE 25 MG CAP PO (22:51)
[2018-05-15] MEDS: ALBUTEROL/IPRATROPIUM (NEB) 3 ML AMP HHN ×6 (00:36→20:21)
[2018-05-15] MEDS: METHYLPREDNISOLONE 125 MG INJ IV ×3 (06:08→20:44)
[2018-05-15 06:39] LABS: ADD MAN DIFF? NO
[2018-05-15 06:43] LABS: WHITE BLOOD COUNT 9.1 10^3/ul (4.8-10.8)
[2018-05-15 06:43] LABS: ABNORMAL IP MESSAGE 1; BASOPHILS % 0.1 % (0.0-2.0); HEMATOCRIT 33.1 % (42.0-52.0); HEMOGLOBIN 10.8 g/dl (14.0-18.0); LYMPHOCYTES # 0.4 10^3/ul (0.8-2.9); LYMPHOCYTES % 4.6 % (15.0-51.0); MEAN CORPUSCULAR HEMOGLOBIN 31.1 pg (29.0-33.0); MEAN CORPUSCULAR HGB CONC 32.6 g/dl (32.0-37.0); MEAN CORPUSCULAR VOLUME 95.4 fl (82.0-101.0); MEAN PLATELET VOLUME 8.6 fl (7.4-10.4); MONOCYTE # 0.4 10^3/ul (0.3-0.9); MONOCYTES % 4.1 % (0.0-11.0); NEUTROPHIL # 8.2 10^3/ul (1.6-7.5); NEUTROPHILS % 90.4 % (39.0-77.0); PLATELET COUNT 457 10^3/UL (140-415); POSITIVE DIFF @See below; RED BLOOD COUNT 3.47 10^6/ul (4.70-6.10); RED CELL DISTRIBUTION WIDTH 13.2 % (11.5-14.5)
[2018-05-15 07:19] LABS: CHOL/HDL RATIO 3.9 RATIO; HDL CHOLESTEROL 34 mg/dl (28-71); LDL CHOLESTEROL,CALCULATED 77 mg/dl; TRIGLYCERIDES 110 mg/dl (0-149)
[2018-05-15 07:19] LABS: CHOLESTEROL 133 mg/dl (100-200)
[2018-05-15 07:22] LABS: ANION GAP 7 (5-13); BLOOD UREA NITROGEN 16 mg/dl (7-20); CALCIUM 8.3 mg/dl (8.4-10.2); CARBON DIOXIDE 26 mmol/L (21-31); CHLORIDE 106 mmol/L (97-110); CREATININE 0.69 mg/dl (0.61-1.24); Estimated GFR > 60 mL/min (>60); GLUCOSE 167 mg/dl (70-220); POTASSIUM 4.3 mmol/L (3.5-5.1); SODIUM 139 mmol/L (135-144)
[2018-05-15 07:50] LABS: PHOSPHORUS 2.6 mg/dl (2.5-4.9)
[2018-05-15] MEDS: LISINOPRIL 10 MG TAB PO (08:08)
[2018-05-15] MEDS: HYDROCODONE/APAP (7.5/325) TAB PO (09:50)
[2018-05-15] MEDS: morphine 2 MG INJ IV ×2 (13:19→20:54)
[2018-05-15] MEDS: AZITHROMYCIN 250 MG in SOD CHLORIDE 0.9% 250 ML IVPB (17:14)
[2018-05-16] MEDS: ALBUTEROL/IPRATROPIUM (NEB) 3 ML AMP HHN ×6 (01:38→21:57)
[2018-05-16] MEDS: morphine 2 MG INJ IV ×3 (07:46→20:23)
[2018-05-16] MEDS: METHYLPREDNISOLONE 125 MG INJ IV ×2 (08:49→20:21)
[2018-05-16] MEDS: LISINOPRIL 10 MG TAB PO (08:50)
[2018-05-16] MEDS ORDERED: GLUCOSE GEL 15 GRAM TUBE BUCCAL (10:00)
[2018-05-16] MEDS ORDERED: GLUCOSE GEL 15 GRAM TUBE PO ×2 (10:00)
[2018-05-16] MEDS ORDERED: DEXTROSE 50% 50 ML SYRINGE IV ×2 (10:00)
[2018-05-16] MEDS ORDERED: GLUCAGON 1 MG INJ IM (10:00)
[2018-05-16] MEDS: NPH, HUMAN INSULIN ISOPHANE 3ML VIAL SC ×2 (10:43→20:00)
[2018-05-16] MEDS: ENOXAPARIN 40 MG/0.4 ML SYG SC (10:44)
[2018-05-16] MEDS: INSULIN ASPART [NOVOLOG] 3 ML PEN SC ×3 (12:14→20:22)
[2018-05-16] MEDS: AZITHROMYCIN 250 MG in SOD CHLORIDE 0.9% 250 ML IVPB (15:35)
[2018-05-17] MEDS: ALBUTEROL/IPRATROPIUM (NEB) 3 ML AMP HHN ×6 (01:41→21:24)
[2018-05-17] MEDS: ACCU-CHEK XX (02:00)
[2018-05-17] MEDS: morphine 2 MG INJ IV ×3 (02:41→13:42)
[2018-05-17] MEDS: hydrALAzine 20 MG INJ IV (06:16)
[2018-05-17 07:08] LABS: ANION GAP 8 (5-13); BLOOD UREA NITROGEN 18 mg/dl (7-20); CALCIUM 9.2 mg/dl (8.4-10.2); CARBON DIOXIDE 27 mmol/L (21-31); CHLORIDE 102 mmol/L (97-110); Estimated GFR > 60 mL/min (>60); GLUCOSE 217 mg/dl (70-220); MAGNESIUM 1.9 mg/dl (1.7-2.5); POTASSIUM 4.6 mmol/L (3.5-5.1); SODIUM 137 mmol/L (135-144)
[2018-05-17] MEDS: HYDROCODONE/APAP (7.5/325) TAB PO (07:55)
[2018-05-17] MEDS: INSULIN ASPART [NOVOLOG] 3 ML PEN SC ×4 (08:07→20:37)
[2018-05-17] MEDS: LISINOPRIL 10 MG TAB PO (09:01)
[2018-05-17] MEDS: METHYLPREDNISOLONE 125 MG INJ IV (09:01)
[2018-05-17] MEDS: ENOXAPARIN 40 MG/0.4 ML SYG SC (09:03)
[2018-05-17] MEDS: NPH, HUMAN INSULIN ISOPHANE 3ML VIAL SC ×2 (09:03→20:37)
[2018-05-17] MEDS: AZITHROMYCIN 250 MG in SOD CHLORIDE 0.9% 250 ML IVPB (15:30)
[2018-05-17] MEDS: METHYLPREDNISOLONE 40 MG INJ IV (20:29)
[2018-05-18] MEDS: ALBUTEROL/IPRATROPIUM (NEB) 3 ML AMP HHN ×6 (00:18→20:10)
[2018-05-18] MEDS: ACCU-CHEK XX (01:52)
[2018-05-18] MEDS: morphine 2 MG INJ IV ×4 (01:52→22:11)
[2018-05-18 06:40] LABS: ADD MAN DIFF? NO
[2018-05-18 06:57] LABS: WHITE BLOOD COUNT 9.9 10^3/ul (4.8-10.8)
[2018-05-18 06:57] LABS: ABNORMAL IP MESSAGE 1; BASOPHILS % 0.1 % (0.0-2.0); HEMATOCRIT 37.6 % (42.0-52.0); LYMPHOCYTES # 0.4 10^3/ul (0.8-2.9); LYMPHOCYTES % 4.2 % (15.0-51.0); MEAN CORPUSCULAR HEMOGLOBIN 30.2 pg (29.0-33.0); MEAN CORPUSCULAR HGB CONC 31.9 g/dl (32.0-37.0); MEAN CORPUSCULAR VOLUME 94.7 fl (82.0-101.0); MEAN PLATELET VOLUME 8.5 fl (7.4-10.4); MONOCYTE # 0.5 10^3/ul (0.3-0.9); MONOCYTES % 5.4 % (0.0-11.0); NEUTROPHIL # 8.8 10^3/ul (1.6-7.5); NEUTROPHILS % 89.3 % (39.0-77.0); PLATELET COUNT 477 10^3/UL (140-415); POSITIVE DIFF @See below; RED BLOOD COUNT 3.97 10^6/ul (4.70-6.10); RED CELL DISTRIBUTION WIDTH 13.5 % (11.5-14.5)
[2018-05-18 07:19] LABS: ANION GAP 10 (5-13); BLOOD UREA NITROGEN 17 mg/dl (7-20); CALCIUM 9.1 mg/dl (8.4-10.2); CARBON DIOXIDE 30 mmol/L (21-31); CHLORIDE 99 mmol/L (97-110); CREATININE 0.72 mg/dl (0.61-1.24); Estimated GFR > 60 mL/min (>60); GLUCOSE 169 mg/dl (70-220); POTASSIUM 3.8 mmol/L (3.5-5.1); SODIUM 139 mmol/L (135-144)
[2018-05-18] MEDS: INSULIN ASPART [NOVOLOG] 3 ML PEN SC ×4 (07:35→20:02)
[2018-05-18] MEDS: AZITHROMYCIN 250 MG TAB PO (08:37)
[2018-05-18] MEDS: LISINOPRIL 10 MG TAB PO ×2 (08:37→12:32)
[2018-05-18] MEDS: NPH, HUMAN INSULIN ISOPHANE 3ML VIAL SC ×2 (08:59→20:09)
[2018-05-18] MEDS: ENOXAPARIN 40 MG/0.4 ML SYG SC (08:59)
[2018-05-18] MEDS: METHYLPREDNISOLONE 40 MG INJ IV ×2 (09:29→20:03)
[2018-05-18] MEDS: AMLODIPINE 2.5 MG TAB PO (12:32)
[2018-05-19] MEDS: ALBUTEROL/IPRATROPIUM (NEB) 3 ML AMP HHN ×3 (00:46→10:05)
[2018-05-19] MEDS: ACCU-CHEK XX (02:00)
[2018-05-19] MEDS: morphine 2 MG INJ IV (07:03)
[2018-05-19] MEDS: INSULIN ASPART [NOVOLOG] 3 ML PEN SC ×2 (08:00→12:32)
[2018-05-19] MEDS: METHYLPREDNISOLONE 40 MG INJ IV (08:31)
[2018-05-19] MEDS: AZITHROMYCIN 250 MG TAB PO (08:32)
[2018-05-19] MEDS: LISINOPRIL 20 MG TAB PO (08:32)
[2018-05-19] MEDS: AMLODIPINE 2.5 MG TAB PO (08:32)
[2018-05-19] MEDS: NPH, HUMAN INSULIN ISOPHANE 3ML VIAL SC (08:41)
[2018-05-19] MEDS: ENOXAPARIN 40 MG/0.4 ML SYG SC (08:41)
== END 2018-05-19 12:49 | disposition home or self-care (01) | DRG 196 ==
LOC: 6WM 20:30 → E/R 16:48 → 6WM 19:04
PROVIDERS: Internal Medicine
PROC: 3E0F7GC Introduction of Other Therapeutic Substance into Respiratory Tract, Via Natural or Artificial Opening (ICD-10-PCS; principal; 2018-05-13)
DX: D86.0 Sarcoidosis of lung (principal); J96.91 Respiratory failure, unspecified with hypoxia; J45.901 Unspecified asthma with (acute) exacerbation; K86.0 Alcohol-induced chronic pancreatitis; J44.0 Chronic obstructive pulmonary disease with (acute) lower respiratory infection; J84.10 Pulmonary fibrosis, unspecified; I27.20 Pulmonary hypertension, unspecified; Z99.81 Dependence on supplemental oxygen; I10 Essential (primary) hypertension; J20.9 Acute bronchitis, unspecified; F10.20 Alcohol dependence, uncomplicated; R73.03 Prediabetes; F10.10 Alcohol abuse, uncomplicated; Y90.0 Blood alcohol level of less than 20 mg/100 ml; Z59.0 Homelessness; Z87.891 Personal history of nicotine dependence
CPT/HCPCS: 36415; 71045; 80048; 80053; 80061; 80307; 82962; 83036; 83605; 83690; 83735; 83880; 84100; 84484; 85025; 85610; 85730; 87040; 87400; 93005; 93308; 94640; 94644; 94664; 96374; 96375; 97116; 97162; 97530; 99285-25